=== PATIENT | female | born 1970 | race Caucasian/White ===

== ENCOUNTER 2021-11-30 10:13 | Emergency (ER) | payer OTHER, SELFPAY ==
[2021-11-30 10:16] VITALS: BP 152/89; PULSE 73; RESP 16; TEMP 36.1; O2SAT 98
--- NOTE | 2021-11-30 10:53 | ED.DENTAL ---
HPI - Dental/Oral General Chief complaint: Dental/Oral Stated complaint: R FACIAL SWELLING ?TOOTH ISSUE Time Seen by Provider: 11/30/21 10:26 History of Present Illness HPI Narrative: 51-year-old female presenting with dental pain and swelling for 3 days, she had been seen for this by her doctor yesterday, started her on antibiotics, she only took 1 dose and was concerned because she still had swelling of her right face. No fevers or chills, nausea or vomiting, no difficulty with opening her jaw or speaking or breathing Related Data Allergies Allergy/AdvReac Type Severity Reaction Status Date / Time No Known Allergies Allergy Unverified 10/26/13 16:07 Review of Systems Review of Systems: CONST: No fever. HEENT: Face and jaw pain C/V: No chest pain RESP: No difficulty breathing GI: No fevers or chills : No dysuria. M/S: No joint pain. SKIN: No rash. NEURO: [No headache or focal numbness or weakness] PSYCH: [No depression] [facility] Past Medical History Medical History (Updated 11/30/21 @ 16:28 by Radha Mustafa MD) Dental abscess Social History Social History (Updated 11/30/21 @ 16:28 by Radha Mustafa MD) Smoking status: Current some day smoker Exam Narrative: EXAMINATION OF ORGAN SYSTEMS/BODY AREAS: Constitutional: Vital signs per nursing GENERAL:[No acute distress, non-toxic appearing.] HEAD: Slight swelling to the right face EYES: EOMI, conjunctiva normal ENT: Hearing grossly intact; swelling to the right upper incisor/molars, no fluctuant collection LUNGS: Nonlabored breathing. HEART: [Regular rate and rhythm] ABD: Nondistended EXT: Normal range of motion SKIN: [No rashes or lesions.] NEURO: [Alert and oriented x 3. No gross focal sensory or strength deficits.] PSYCH: Normal affect Course Vital Signs Vital signs: Vital Signs Temperature 97 F L 11/30/21 10:16 Pulse Rate 73 11/30/21 10:16 Respiratory Rate 16 11/30/21 10:16 Blood Pressure 152/89 H 11/30/21 10:16 Pulse Oximetry 98 11/30/21 10:16 Oxygen Delivery Room Air 11/30/21 10:16 Temperature 97 F L 11/30/21 10:16 Pulse Rate 73 11/30/21 10:16 Respiratory Rate 16 11/30/21 10:16 Blood Pressure 152/89 H 11/30/21 10:16 Pulse Oximetry 98 11/30/21 10:16 Oxygen Delivery Room Air 11/30/21 10:16 MDM - Dental/Oral MDM Narrative Medical decision making narrative: ED COURSE AND MEDICAL DECISION MAKING: Patient with worsening dental pain and dental decay. No palpable abscess. No systemic signs or symptoms. No trismus. She is offered a dental block which she declines Follow-up instructions given for dental/oral surgery clinics. Patient was given return precautions and discharged home in stable condition. She already has antibiotic and ibuprofen scripts Pulse oximetry interpretation: not hypoxic. Discharge Plan Discharge Clinical Impression: Dental abscess, Toothache Patient Disposition: Home, Self-Care Condition: Stable Instructions: Antibiotic Form, Dental Abscess (ED) Additional Instructions: Please take the antibiotics as prescribed, come back if your symptoms are not improving in the next 3-4 days or if they get worse. Prescriptions: New clindamycin HCl 300 mg capsule 300 mg PO Q8H Qty: 21 0RF Follow-up/Referrals: Arben,CATRINA Vergara [Primary Care Provider] - Christopher Silva DMD [Physician] - Davidson,Ahmet Rankin DMD [Non-Staff] -
== END 2021-11-30 11:16 | disposition home or self-care (01) ==
PROVIDERS: Emergency Provider Emergency Medicine; PCP Physician Assistant
DX: K04.7 Periapical abscess without sinus (principal); F17.200 Nicotine dependence, unspecified, uncomplicated
CPT/HCPCS: 99283